=== PATIENT | male | born 1970 | race Caucasian/White ===

== ENCOUNTER → 2018-10-23 | Outpatient (CLI) | payer MEDICARE, MEDICAID ==
--- NOTE | 2018-10-23 14:53 | RADIOLOGY REPORT (SQ) ---
EXAM DESCRIPTION: FOOT BILATERAL 2 VIEWS COMPLETED DATE/TIME: 10/23/2018 1:26 pm REASON FOR STUDY: PAIN OF BOTH HEELS 729.5 COMPARISON: None. NUMBER OF VIEWS: Two views. TECHNIQUE: AP and lateral radiographic images acquired of the right and left foot. LIMITATIONS: None. FINDINGS: MINERALIZATION: Normal. BONES: There is a small plantar calcaneal spur on each side. JOINTS: No effusions. SOFT TISSUES: No soft tissue swelling. No foreign body. OTHER: No other significant finding. IMPRESSION: There is a small calcaneal spur on each side. No acute abnormality. TECHNICAL DOCUMENTATION: JOB ID: [id number] [employer]- All Rights Reserved Reading location - IP/workstation name: [email or web address]
== END ==
LOC: OD 13:09
PROVIDERS: ATTEND Nurse Practitioner
DX: M77.32 Calcaneal spur, left foot (principal); M77.31 Calcaneal spur, right foot; M79.672 Pain in left foot; M79.671 Pain in right foot